=== PATIENT | female | born 1985 | race Caucasian/White ===

== ENCOUNTER 2017-06-11 11:56 | Observation (INO) | payer BC, OTHER ==
[~2017-06-11] VITALS: Ht 162.6 cm; Wt 115.0 kg
[2017-06-11] VITALS (8 sets, daily range): BP systolic 103–200; BP diastolic 58–128; PULSE 87–115; RESP 12–20; TEMP 97.5–97.8; O2SAT 97–100
[~2017-06-11 11:56] MED LIST: IBUP-232 PO; PENI500T PO; PRED50 PO; Z.0.NO CURRENT MEDS
[2017-06-11] MEDS ORDERED: SODIUM CHLORIDE 0.9% FLUSH 10 ML FLUSH IVF PRN (12:15)
[2017-06-11] MEDS ORDERED: ASPIRIN 325 MG TAB PO ONE (12:15)
--- NOTE | 2017-06-11 12:15 | PD ---
HPI Chief Complaint: Chest Pain Time Seen by Provider: 12:06 Travel History International Travel<30 days: No Contact w/Intl Traveler<30days: No Traveled to known affect area: No History of Present Illness HPI 31-year-old female presents to the ED for evaluation of 2 day history of central chest pressure that has since changed to sharp, shooting chest pain. Patient rates the pain 3/10 minimally, 7/10 maximally. Pain is currently 3/10. She states that during these episodes of sharp pain she feels as if her heart is pounding and feels "like my blood pressure is high" with feeling "as if the room is spinning." Also endorses accompanying nausea and shortness of breath. States the pain is somewhat relieved by lying down and resting. No exacerbating factors reported. She denies headaches, vision changes, diaphoresis, cough, abdominal pain, nausea, vomiting, history of anxiety. She states that she treated at home with omeprazole with no improvement of symptoms. She states this pain is different than her GERD symptoms. She denies risk of . She endorses smoking a pack per day for about 6 months at age 20. She endorses familial cardiac history, mom with OK at 49. She's never had a cardiac workup. No primary care, has not seen a doctor in 2 years. PFSH Past Medical History Depression: Yes Diminished Hearing: No Kidney Stones: Yes (LITHROTRIPSY 2007) Psychiatric: Yes Migraines: Yes : 0 Miscarriage: 1 Past Surgical History Genitourinary Surgery: Yes (KIDNEY STONES REMOVED) Other Surgery: Yes (KIDNEY STONE REMOVAL) Social History Alcohol Use: No Tobacco Use: No Substance Use: No Allergies-Medications (Allergen,Severity, Reaction): Coded Allergies: shellfish derived (Unverified Allergy, Severe, Nausea/Vomiting, 02/10/17) quetiapine (Unverified Adverse Reaction, Severe, 02/10/17) Reported Meds & Prescriptions Reported Meds & Active Scripts Active Deltasone 50 Mg Tab (Prednisone) 50 Mg Tab 50 Mg PO DAILY 5 Days Pen Vk (Penicillin V Potassium) 500 Mg Tab 500 Mg PO BID Motrin (Ibuprofen) 600 Mg Tab 600 Mg PO TID WITH MEALS WITH MEALS Reported No Current Meds (Miscellaneous Medication) Misc Review of Systems Except as stated in HPI: all other systems reviewed are Neg Physical Exam Narrative GENERAL: Well-nourished, well-developed obese white female in no acute distress. SKIN: Focused skin assessment warm/dry. HEAD: Normocephalic. EYES: No scleral icterus. No injection or drainage. NECK: Supple, trachea midline. No JVD or lymphadenopathy. CARDIOVASCULAR: Regular rate and rhythm without murmurs, gallops, or rubs. CHEST: Tender to palpation over the mid sternum. Otherwise nontender throughout without deformity or crepitus. RESPIRATORY: Breath sounds clear and equal bilaterally. No accessory muscle use. GASTROINTESTINAL: Abdomen soft, non-tender, nondistended. Active bowel sounds. MUSCULOSKELETAL: No cyanosis, or edema. NEUROLOGICAL: Awake and alert. Cranial nerves II through XII intact. Motor and sensory grossly within normal limits. Five out of 5 muscle strength in all muscle groups. Normal speech. BACK: Nontender without obvious deformity. No CVA tenderness. Data Data Last Documented VS Vital Signs Date Time Temp Pulse Resp B/P (MAP) Pulse Ox O2 Delivery O2 Flow Rate FiO2 06/11/17 14:12 87 12 170/108 (128) 100 Room Air 06/11/17 11:58 97.8 Orders Orders Electrocardiogram (06/11/17 12:07) Ckmb (Isoenzyme) Profile (06/11/17 12:07) Complete Blood Count With Diff (06/11/17 12:07) Comprehensive Metabolic Panel (06/11/17 12:07) Magnesium (Mg) (06/11/17 12:07) Prothrombin Time / Inr (Pt) (06/11/17 12:07) Act Partial Throm Time (Ptt) (06/11/17 12:07) Troponin I (06/11/17 12:07) Chest, Single Ap (06/11/17 12:07) Ecg Monitoring (06/11/17 12:07) Bilateral Bp Monitoring (06/11/17 12:07) Iv Access Insert/Monitor (06/11/17 12:07) Oximetry (06/11/17 12:07) Aspirin (Aspirin) (06/11/17 12:15) Sodium Chloride 0.9% Flush (Ns Flush) (06/11/17 12:15) Ed Urine Pregnancytest Poc (06/11/17 12:07) Ct Brain W/O Iv Contrast(Rout) (12/14/17 ) D-Dimer (06/11/17 12:41) Drug Screen, Random Urine (06/11/17 12:41) Admit Order (Ed Use Only) (06/11/17 14:12) Labs Laboratory Tests Test 06/11/17 12:15 06/11/17 13:00 White Blood Count 10.9 TH/MM3 Red Blood Count 4.89 MIL/MM3 Hemoglobin 13.2 GM/DL Hematocrit 40.6 % Mean Corpuscular Volume 83.0 FL Mean Corpuscular Hemoglobin 27.0 PG Mean Corpuscular Hemoglobin Concent 32.6 % Red Cell Distribution Width 14.9 % Platelet Count 423 TH/MM3 Mean Platelet Volume 7.3 FL Neutrophils (%) (Auto) 62.4 % Lymphocytes (%) (Auto) 25.5 % Monocytes (%) (Auto) 8.7 % Eosinophils (%) (Auto) 2.8 % Basophils (%) (Auto) 0.6 % Neutrophils # (Auto) 6.8 TH/MM3 Lymphocytes # (Auto) 2.8 TH/MM3 Monocytes # (Auto) 1.0 TH/MM3 Eosinophils # (Auto) 0.3 TH/MM3 Basophils # (Auto) 0.1 TH/MM3 CBC Comment DIFF FINAL Differential Comment Prothrombin Time 9.9 SEC Prothromb Time International Ratio 1.0 RATIO Activated Partial Thromboplast Time 27.3 SEC D-Dimer Quantitative (PE/DVT) LESS THAN 0.19 MG/L FEU Blood Urea Nitrogen 9 MG/DL Creatinine 0.73 MG/DL Random Glucose 87 MG/DL Total Protein 8.0 GM/DL Albumin 3.8 GM/DL Calcium Level 8.9 MG/DL Magnesium Level 2.2 MG/DL Alkaline Phosphatase 70 U/L Aspartate Amino Transf (AST/SGOT) 10 U/L Alanine Aminotransferase (ALT/SGPT) 26 U/L Total Bilirubin 0.3 MG/DL Sodium Level 139 MEQ/L Potassium Level 3.9 MEQ/L Chloride Level 105 MEQ/L Carbon Dioxide Level 28.1 MEQ/L Anion Gap 6 MEQ/L Estimat Glomerular Filtration Rate 94 ML/MIN Total Creatine Kinase 96 U/L Troponin I LESS THAN 0.02 NG/ML Urine Opiates Screen NEG Urine Barbiturates Screen NEG Urine Amphetamines Screen NEG Urine Benzodiazepines Screen NEG Urine Cocaine Screen NEG Urine Cannabinoids Screen NEG MDM Medical Decision Making Medical Screen Exam Complete: Yes Emergency Medical Condition: Yes Differential Diagnosis Hypertension versus anxiety versus PE versus GERD versus ACS versus musculoskeletal pain versus other Narrative Course 31-year-old female presents to the ED for evaluation of 2 day history of central chest pressure that has since changed to sharp, shooting chest pain. Patient rates the pain 3/10 minimally, 7/10 maximally. She states that during these episodes of sharp pain she feels as if her heart is pounding and feels "like my blood pressure is high" with feeling "as if the room is spinning." Also endorses accompanying nausea and shortness of breath. States the pain is somewhat relieved by lying down and resting. No exacerbating factors reported. She states this pain is different than her GERD symptoms. She endorses smoking a pack per day for about 6 months at age 20. She endorses familial cardiac history, mom with OK at 49. She's never had a cardiac workup, has not seen a doctor in 2 years. Vitals reviewed. Patient's hypertensive and tachycardic on presentation. His exam reveals an obese white female in no acute distress. No appreciable M/R/G. Tender to palpation over the mid sternum, chest CTA B. Abdomen soft and nontender. No lower extremity edema. No focal neuro deficits. IV was established. Patient was administered an aspirin. EKG rate 100, sinus rhythm. AL interval 163, QRS 97, QTC 418 ms. Normal axis. No ST changes. S1Q3T3. Reviewed by Dr. Healy. CXR: No acute abnormalities. D-dimer within normal limits. No concerning abnormalities of CBC, CMP, coags, UA, drug screen. I discussed the results of the workup with the patient. I recommended observation and the chest pain center for serial EKGs and cardiac enzymes. Patient is agreeable to this plan. Please see [facility] notes for disposition. Jessie Garcia Jun 11, 2017 12:15
[2017-06-11 12:55] LABS: AUTOMATED NEUTROPHIL # 6.8 TH/MM3 (1.8-7.7); BASOPHIL # 0.1 TH/MM3 (0-0.2); BASOPHIL % 0.6 % (0.0-2.0); EOSINOPHIL # 0.3 TH/MM3 (0-0.4); EOSINOPHIL % 2.8 % (0.0-4.0); HEMATOCRIT 40.6 % (35.0-46.0); HEMO FLAGS DIFF FINAL; LYMPH % 25.5 % (9.0-44.0); LYMPHOCYTE # 2.8 TH/MM3 (1.0-4.8); MEAN CORPUSCULAR HGB CONC 32.6 % (32.0-36.0); MONO % 8.7 % (0.0-8.0); NEUT % 62.4 % (16.0-70.0); PLATELET COUNT 423 TH/MM3 (150-450); RED BLOOD COUNT 4.89 MIL/MM3 (4.00-5.30); RED CELL DISTRIBUTION WIDTH 14.9 % (11.6-17.2); WHITE BLOOD COUNT 10.9 TH/MM3 (4.0-11.0)
--- NOTE | 2017-06-11 13:01 | RADRPT ---
EXAM DATE/TIME: 06/11/2017 12:30 [facility] COMPARISON: No previous studies available for comparison. INDICATIONS : Chest pain and short of breath. MEDICAL HISTORY : None. SURGICAL HISTORY : None. ENCOUNTER: Initial ACUITY: 1 day PAIN SCORE: 7/10 LOCATION: Bilateral chest FINDINGS: A single view of the chest demonstrates the lungs to be symmetrically aerated without evidence of mas s, infiltrate or effusion. The cardiomediastinal contours are unremarkable. Osseous structures are intact. CONCLUSION: No acute disease. Srinivasa Lindsay MD on June 11, 2017 at 13:00 Board Certified Radiologist. This report was verified electronically.
[2017-06-11 13:06] LABS: APTT (PATIENT) 27.3 SEC (24.3-30.1); PROTHROMBIN TIME - PATIENT 9.9 SEC (9.8-11.6)
[2017-06-11 13:10] LABS: ALT (GPT) 26 U/L (10-53); ANION GAP 6 MEQ/L (5-15); AST (GOT) 10 U/L (15-37); BICARBONATE 28.1 MEQ/L (21.0-32.0); BLOOD UREA NITROGEN 9 MG/DL (7-18); CHLORIDE 105 MEQ/L (98-107); GLOMERULAR FILTRATION RATE 94 ML/MIN (>89); MAGNESIUM 2.2 MG/DL (1.5-2.5); POTASSIUM 3.9 MEQ/L (3.5-5.1); SODIUM (NA) 139 MEQ/L (136-145)
[2017-06-11 13:14] LABS: ALKALINE PHOSPHATASE 70 U/L (45-117); TOTAL BILIRUBIN ADULT 0.3 MG/DL (0.2-1.0)
[2017-06-11 13:18] LABS: CREATINE KINASE 96 U/L (26-192)
--- NOTE | 2017-06-11 13:55 | RADRPT ---
EXAM DATE/TIME: 06/11/2017 13:14 [facility] COMPARISON: CT SOFT TISSUE NECK W CONTRAST, March 20, 2016, 13:44. INDICATIONS : Lightheadedness with chest pains . RADIATION DOSE: 56.64 CTDIvol (mGy) MEDICAL HISTORY : Kidney stones SURGICAL HISTORY : None. ENCOUNTER: Initial ACUITY: 3 days PAIN SCALE: 10/10 LOCATION: Bilateral cranial TECHNIQUE: Multiple contiguous axial images were obtained of the head. Using automated exposure control and adj ustment of the mA and/or kV according to patient size, radiation dose was kept as low as reasonably a chievable to obtain optimal diagnostic quality images. DICOM format image data is available electro nically for review and comparison. FINDINGS: CEREBRUM: The ventricles are normal for age. No evidence of midline shift, mass lesion, hemorrhage or acute in farction. No extra-axial fluid collections are seen. POSTERIOR FOSSA: The cerebellum and brainstem are intact. The 4th ventricle is midline. The cerebellopontine angle i s unremarkable. EXTRACRANIAL: The visualized portion of the orbits is intact. SKULL: The calvaria is intact. No evidence of skull fracture. CONCLUSION: 1. No acute intracranial abnormality identified. Chauncey Gresham MD on June 11, 2017 at 13:51 Board Certified Radiologist. This report was verified electronically.
[2017-06-11] MEDS ORDERED: cloNIDine HCL 0.1 MG TAB PO ONE (14:15)
[2017-06-11] MEDS ORDERED: ALPRAZolam 0.25 MG TAB PO PRN (15:00)
[2017-06-11] MEDS ORDERED: ONDANSETRON HCL 4 MG/2 ML VIAL IV PUSH PRN (15:00)
[2017-06-11] MEDS ORDERED: ACETAMINOPHEN 500 MG CPLT PO PRN (15:00)
[2017-06-11] MEDS ORDERED: ACETAMINOPHEN/HYDROcodone 325 MG/7.5 MG TAB PO PRN (15:00)
--- NOTE | 2017-06-11 15:04 | HHI.HP ---
HPI Primary Care Physician No Primary Care Physician Chief Complaint Chest pain History of Present Illness This is a 31-year-old female that presents to ED via private vehicle with a complaint of chest discomfort and hypertension. Patient states that she has had a constant central chest pressure for 3 days. She is also had mixed without an intermittent sharp discomfort that begins in the same area in the center of her chest and radiates directly to her back. She has noticed that when her blood pressures up the sharp pains will occur. She has had hypertension for a while but states was never high enough to begin her medication. Over last several weeks she has no sibling higher. At home if been in the 160s. Denies shortness of breath, nausea, or diaphoresis. Denies headache. Denies . Denies recent illness. Denies recent travel. Review of Systems General: Patient denies fevers, chills recent, and recent travel HEENT: Patient denies headache, sore throat, difficulty swallowing. Cardiovascular: Has the chest discomfort as mentioned above. Denies sensation of heart beating rapidly or irregularly. No syncope. Denies diaphoresis. Respiratory: Denies shortness of breath or inspirational chest discomfort. Denies coughing wheezing or hemoptysis. GI: Patient denies nausea, vomiting, diarrhea, abdominal pain, bloody stools. Musculoskeletal: Patient denies joint pain or edema. Denies calf pain or edema. Neurovascular: Patient denies numbness, tingling, weakness in extremities. Denies headache. Endocrine: Denies polyuria and polydipsia. Hematologic: Denies easy bruising. Skin: Denies rash or itching. Past Family Social History Allergies: Coded Allergies: shellfish derived (Unverified Allergy, Severe, Nausea/Vomiting, 02/10/17) quetiapine (Unverified Adverse Reaction, Severe, 02/10/17) Past Medical History Hypertension but she states she was never prescribed medication. History kidney stones and migraines. Denies hyperlipidemia, diabetes, and known CAD. Past Surgical History Lithotripsy. Reported Medications Reported Meds & Active Scripts Active Deltasone 50 Mg Tab (Prednisone) 50 Mg Tab 50 Mg PO DAILY 5 Days Pen Vk (Penicillin V Potassium) 500 Mg Tab 500 Mg PO BID Motrin (Ibuprofen) 600 Mg Tab 600 Mg PO TID WITH MEALS WITH MEALS Reported No Current Meds (Miscellaneous Medication) Misc Active Ordered Medications Current Medications Medications (Trade) Dose Ordered Sig/Christ Route Start Time Stop Time Status Last Admin (NS Flush) 2 ml UNSCH PRN IVF 06/11/17 12:15 ([place] 7.5-325 Mg) 1 tab Q4H PRN PO 06/11/17 15:00 UNV Family History Her mother had an PA in her 40s. Social History Patient has been a lifetime nonsmoker. Denies alcohol or illicit drugs. Physical Exam Vital Signs Vital Signs Date Time Temp Pulse Resp B/P (MAP) Pulse Ox O2 Delivery O2 Flow Rate FiO2 06/11/17 14:12 87 12 170/108 (128) 100 Room Air 06/11/17 12:59 88 173/88 (116) 06/11/17 12:52 97 Room Air 06/11/17 11:58 97.8 115 18 200/128 (152) 98 Room Air Physical Exam GENERAL: This is a well-nourished, well-developed patient, in no apparent distress. Patient speaks in clear complete sentences. Patient is pleasant. HEENT: Head is atraumatic and normocephalic. Neck is supple without lymphadenopathy and trachea is midline. No JVD or carotid bruits. CARDIOVASCULAR: Regular rate and rhythm without murmurs, gallops, or rubs. RESPIRATORY: Clear to auscultation. Breath sounds equal bilaterally. No wheezes , rales, or rhonchi. Chest wall is nontender. No use of accessory muscles. GASTROINTESTINAL: Abdomen is nontender, nondistended. Abdomen soft. No obvious pulsatile mass or bruit. No CVA tenderness. Strong femoral pulses bilaterally. Normal bowel sounds in all quadrants. MUSCULOSKELETAL: Patient is moving upper and lower extremities freely. No calf tenderness or edema, no Homans sign. Strong pulses in upper and lower extremities. NEUROLOGICAL: Patient is alert and oriented. Cranial nerves 2-12 are grossly intact. No focal deficits and speech is clear. SKIN: No rash and turgor is normal. Laboratory Laboratory Tests Test 06/11/17 12:15 06/11/17 13:00 White Blood Count 10.9 Red Blood Count 4.89 Hemoglobin 13.2 Hematocrit 40.6 Mean Corpuscular Volume 83.0 Mean Corpuscular Hemoglobin 27.0 Mean Corpuscular Hemoglobin Concent 32.6 Red Cell Distribution Width 14.9 Platelet Count 423 Mean Platelet Volume 7.3 Neutrophils (%) (Auto) 62.4 Lymphocytes (%) (Auto) 25.5 Monocytes (%) (Auto) 8.7 Eosinophils (%) (Auto) 2.8 Basophils (%) (Auto) 0.6 Neutrophils # (Auto) 6.8 Lymphocytes # (Auto) 2.8 Monocytes # (Auto) 1.0 Eosinophils # (Auto) 0.3 Basophils # (Auto) 0.1 CBC Comment DIFF FINAL Differential Comment Prothrombin Time 9.9 Prothromb Time International Ratio 1.0 Activated Partial Thromboplast Time 27.3 D-Dimer Quantitative (PE/DVT) LESS THAN 0.19 Blood Urea Nitrogen 9 Creatinine 0.73 Random Glucose 87 Total Protein 8.0 Albumin 3.8 Calcium Level 8.9 Magnesium Level 2.2 Alkaline Phosphatase 70 Aspartate Amino Transf (AST/SGOT) 10 Alanine Aminotransferase (ALT/SGPT) 26 Total Bilirubin 0.3 Sodium Level 139 Potassium Level 3.9 Chloride Level 105 Carbon Dioxide Level 28.1 Anion Gap 6 Estimat Glomerular Filtration Rate 94 Total Creatine Kinase 96 Troponin I LESS THAN 0.02 Urine Opiates Screen NEG Urine Barbiturates Screen NEG Urine Amphetamines Screen NEG Urine Benzodiazepines Screen NEG Urine Cocaine Screen NEG Urine Cannabinoids Screen NEG Result Diagram: 06/11/17 1215 06/11/17 1215 Imaging Last 48 hours Impressions Chest X-Ray 06/11/17 1207 Signed Impressions: Service Date/Time: May 12:30 - CONCLUSION: No acute disease. Srinivasa Lindsay MD Head CT 06/11/17 0000 Signed Impressions: Service Date/Time: May 13:14 - CONCLUSION: 1. No acute intracranial abnormality identified. Chauncey Gresham MD Course EKG is sinus tachycardia rate of [address] segment depressions or elevations. Caprini VTE Risk Assessment Caprini VTE Risk Assessment: No/Low Risk (score <= 1) Caprini Risk Assessment Model Point Value = 1 Point Value = 2 Point Value = 3 Point Value = 5 Age 41-60 Minor surgery BMI > 25 kg/m2 Swollen legs Varicose veins or History of unexplained or recurrent spontaneous Oral contraceptives or hormone replacement Sepsis (< 1 month) Serious lung disease, including pneumonia (< 1 month) Abnormal pulmonary function Acute myocardial infarction Congestive heart failure (< 1 month) History of inflammatory bowel disease Medical patient at bed rest Age 61-74 Arthroscopic surgery Major open surgery (> 45 min) Laparoscopic surgery (> 45 min) Malignancy Confined to bed (> 72 hours) Immobilizing plaster cast Central venous access Age >= 75 History of VTE Family history of VTE Factor V Leiden Prothrombin [id number] Lupus anticoagulant Anticardiolipin antibodies Elevated serum homocysteine Heparin-induced thrombocytopenia Other congenital or acquired thrombophilia Stroke (< 1 month) Elective arthroplasty Hip, pelvis, or leg fracture Acute spinal cord injury (< 1 month) Prophylaxis Regimen Total Risk Factor Score Risk Level Prophylaxis Regimen 0-1 Low Early ambulation 2 Moderate Order ONE of the following: *Sequential Compression Device (SCD) *Heparin 5000 units SQ BID 3-4 Higher Order ONE of the following medications: *Heparin 5000 units SQ TID *Enoxaparin/Lovenox 40 mg SQ daily (WT < 150 kg, CrCl > 30 mL/min) *Enoxaparin/Lovenox 30 mg SQ daily (WT < 150 kg, CrCl > 10-29 mL/min) *Enoxaparin/Lovenox 30 mg SQ BID (WT < 150 kg, CrCl > 30 mL/min) AND/OR *Sequential Compression Device (SCD) 5 or more Highest Order ONE of the following medications: *Heparin 5000 units SQ TID (Preferred with Epidurals) *Enoxaparin/Lovenox 40 mg SQ daily (WT < 150 kg, CrCl > 30 mL/min) *Enoxaparin/Lovenox 30 mg SQ daily (WT < 150 kg, CrCl > 10-29 mL/min) *Enoxaparin/Lovenox 30 mg SQ BID (WT < 150 kg, CrCl > 30 mL/min) AND *Sequential Compression Device (SCD) Assessment and Plan Assessment and Plan * Chest pain: Patient will continue to have serial cardiac enzymes and EKGs for ruling out purposes. She was seen by Dr. Sunny Rodriguez of cardiology in the chest pain center. Her symptoms do not sound cardiac in nature but she has risks factors and will have a stress test. We cannot do a stress test today secondary to caffeine intake. She will have a Lexiscan in the morning if she rules out. She'll be discharged home if her stress test is nonischemic with instructions to follow-up with PCP and return to ED for interval issues. * Hypertension: We'll start amlodipine. * Obesity: Patient counseled on importance of diet, exercise, weight loss. Patient is stable time. She is agreeable to this plan. Jayesh Horvath Jun 11, 2017 15:04
[2017-06-11] MEDS ORDERED: cloNIDine HCL 0.1 MG TAB PO PRN (15:15)
[2017-06-11] MEDS ORDERED: RESP: ALBUTEROL 2.5 MG/IPRATROPIUM 0.5 MG NEB (PRN) INH (15:15)
[2017-06-11] MEDS: PANTOPRAZOLE SOD 40 MG DELAYED RELEASE TAB PO SCH (15:24)
[2017-06-11] MEDS: amLODIPine BESYLATE 5 MG TAB PO SCH (15:24)
[2017-06-11 16:19] LABS: CREATINE KINASE 100 U/L (26-192)
[2017-06-11 19:17] LABS: CREATINE KINASE 85 U/L (26-192)
[2017-06-12] VITALS: BP 121/65; PULSE 86; RESP 18; TEMP 97.6; O2SAT 96
[2017-06-12 03:35] VITALS: BP 119/79; PULSE 95; RESP 18; TEMP 98.7; O2SAT 96
[2017-06-12 03:54] VITALS: PULSE 71
[2017-06-12 07:09] VITALS: BP 132/61; PULSE 87; RESP 18; TEMP 97.6; O2SAT 97
[2017-06-12 07:52] VITALS: PULSE 75
--- NOTE | 2017-06-12 08:45 | EKG ---
Date Performed: 06/11/2017 Time Performed: 18:30:28 PTAGE: 31 years EKG: Sinus rhythm NORMAL ECG PREVIOUS TRACING : 06/11/2017 15.46 Since previous tracing, no significant change noted DOCTOR: Sunny Rodriguez Interpretating Date/Time 06/12/2017 08:44:42
--- NOTE | 2017-06-12 08:46 | EKG ---
Date Performed: 06/11/2017 Time Performed: 15:46:11 PTAGE: 31 years EKG: Sinus rhythm LOW QRS VOLTAGE IN PRECORDIAL LEADS BORDERLINE ECG PREVIOUS TRACING : 06/11/2017 12.13 Since previous tracing, no significant change noted DOCTOR: Sunny Rodriguez Interpretating Date/Time 06/12/2017 08:45:23
--- NOTE | 2017-06-12 08:49 | EKG ---
Date Performed: 06/11/2017 Time Performed: 12:13:15 PTAGE: 31 years EKG: SINUS TACHYCARDIA ABNORMAL RHYTHM ECG NO PREVIOUS TRACING DOCTOR: Sunny Rodriguez Interpretating Date/Time 06/12/2017 08:47:05
[2017-06-12] MEDS ORDERED: ASPIRIN 325 MG TAB PO SCH (09:00)
[2017-06-12] MEDS: amLODIPine BESYLATE 5 MG TAB PO SCH (09:23)
[2017-06-12] MEDS: PANTOPRAZOLE SOD 40 MG DELAYED RELEASE TAB PO SCH (09:24)
--- NOTE | 2017-06-12 10:10 | HHI.DCPOC ---
Discharge Care Plan Diagnosis: (1) Atypical chest pain (2) Hypertension Goals to Promote Your Health * To prevent worsening of your condition and complications * To maintain your health at the optimal level Directions to Meet Your Goals Take your medications as prescribed Follow your dietary instruction Follow activity as directed Keep your appointments as scheduled Take your immunizations and boosters as scheduled If your symptoms worsen call your PCP, if no PCP go to Urgent Care Center or Emergency Room Smoking is Dangerous to Your Health. Avoid second hand smoke Call the 24-hour hour crisis hotline for domestic abuse at Jewell Schaefer Jun 12, 2017 10:10
[2017-06-12] MEDS ORDERED: AMLO5TAB2 PO (10:12)
--- NOTE | 2017-06-12 10:19 | HHI.DS ---
Discharge Summary Admission Date Jun 11, 2017 at 14:13 Discharge Date: Jun 12, 2017 Admitting Diagnosis chest pain Brief History 32 year female with no significant medical history presents to ER for further evaluation of x3 constant chest pain. Admitted to chest pain center, ruled out with 3 sets of EKG and cardiac enzymes. Completed exercise stress testing, unremarkable. CBC/BMP: 06/11/17 1215 06/11/17 1215 Significant Findings Laboratory Tests Test 06/11/17 12:15 06/11/17 13:00 06/11/17 15:30 06/11/17 18:20 Monocytes (%) (Auto) 8.7 % (0.0-8.0) Monocytes # (Auto) 1.0 TH/MM3 (0-0.9) Aspartate Amino Transf (AST/SGOT) 10 U/L (15-37) Troponin I LESS THAN 0.02 NG/ML LESS THAN 0.02 NG/ML LESS THAN 0.02 NG/ML Imaging Last Impressions Chest X-Ray 06/11/17 1207 Signed Impressions: Service Date/Time: May 12:30 - CONCLUSION: No acute disease. Srinivasa Lindsay MD Head CT 06/11/17 0000 Signed Impressions: Service Date/Time: , June 11, 2017 13:14 - CONCLUSION: 1. No acute intracranial abnormality identified. Chauncey Gresham MD Pt Condition on Discharge: Good Discharge Disposition: Discharge Home Discharge Instructions DIET: Follow Instructions for: Heart Healthy Diet Activities you can perform: Regular-No Restrictions Additional Information Establish with a primary care provided. Continue to work on weight loss, increasing daily activity, and adapting healthy dietary changes decreasing sodas and juice. Jewell Schaefer Jun 12, 2017 10:19
--- NOTE | 2017-06-12 12:00 | TR ---
Date Performed: 06/12/2017 Time Performed: 09:40:19 DOCTOR: Frandy Mcgrath DRUG LIST: CLINICAL HISTORY: CHEST PAIN REASON FOR TEST: REASON FOR ENDING: OBSERVATION: CONCLUSION: Jose Manuel protocol completed. Stopped sec to reaching target heart rate and leg fatigue. Maximum BT=239 Target HR Achieved=86.0% Maximum RN=509/80 Total Exercise Time=5:20. No reprod chest discomfort. Complaints of dyspnea at peak. No ectopy. No st changes to sugg ischemia. Normal bp respo nse. Fair exercise tolerabce, Recovery quick and unremarkable. COMMENTS:
[2017-06-12 12:01] LABS: HDL CHOLESTEROL 37.3 MG/DL (40.0-60.0)
== END 2017-06-12 11:50 | disposition home or self-care (01) ==
LOC: NEPE 11:56 → NEDA 14:13 → NEPGCP 15:29
PROVIDERS: ADMIT Internal Medicine Cardiovascular Disease; ATTEND Internal Medicine Cardiovascular Disease
DX: R07.89 Other chest pain (principal); I10 Essential (primary) hypertension; R00.0 Tachycardia, unspecified; R06.02 Shortness of breath; R42 Dizziness and giddiness; R11.0 Nausea; R94.31 Abnormal electrocardiogram [ECG] [EKG]; F32.9 Major depressive disorder, single episode, unspecified; E66.9 Obesity, unspecified; Z68.41 Body mass index [BMI] 40.0-44.9, adult; Z87.891 Personal history of nicotine dependence; Z79.899 Other long term (current) drug therapy; Z82.49 Family history of ischemic heart disease and other diseases of the circulatory system
CPT/HCPCS: 70450; 71010; 80053; 80061; 80307; 82550; 83735; 84484; 84703; 85025; 85379; 85610; 85730; 93005; 93017; 99285; G0378